=== PATIENT | female | born 1960 ===

== ENCOUNTER 2017-07-08 01:40 | Outpatient (CLI) | payer OTHER | END 2017-07-08 01:41 | disposition home or self-care (01) | LOC: BICRAD 01:40 | PROVIDERS: ATTEND Internal Medicine Rheumatology | DX: M47.896 Other spondylosis, lumbar region (principal); M25.78 Osteophyte, vertebrae; Z98.1 Arthrodesis status | CPT/HCPCS: 72100 ==